=== PATIENT | male | born 1985 | race Caucasian/White ===

== ENCOUNTER 2021-04-11 07:55 | Day surgery (SDC) | payer OTHER, BC ==
[~2021-04-11 07:55] MED LIST: Lactated Ringers 1,000 ML IV SCH; Lidocaine 1% 4 ML ONE; Lidocaine 1%/Sod Bicarbonate in NS 8.4% 1 ML Syringe IDERM PRN; Propofol 200 MG/20 ML SDV ONE; Sodium Chloride 0.9% 10 ML Syringe FLUSH PRN; fentaNYL 100 MCG/2 ML SDV ONE
--- NOTE | 2021-04-11 09:03 | PCM.PREANE ---
Preanesthetic Assessment - Procedure Proposed Procedure: Screening colonoscopy, diagnostic EGD - Anesthesia/Transfusion/Family Hx Anesthesia History: Prior Anesthesia Without Reaction Family History of Anesthesia Reaction: No Transfusion History: No Prior Transfusion(s) - Review of Systems General: No Symptoms Pulmonary: No Symptoms Cardiovascular: No Symptoms Gastrointestinal: No Symptoms Neurological: No Symptoms - Physical Assessment NPO Status Date: 04/10/21 NPO Status Time: 21:00 Height: 1.78 m Weight: 95 kg ASA Class: 2 Mental Status: Alert & Oriented x3 Airway Class: Mallampati = 2 Dentition: Reports: Normal Dentition Thyro-Mental Finger Breadths: 3 Mouth Opening Finger Breadths: 3 ROM/Head Extension: Full Lungs: Clear to Auscultation, Normal Respiratory Effort Cardiovascular: Regular Rate, Regular Rhythm - Blood Blood Available: No Product(s) Available: None - Anesthesia Plan Pre-Op Medication Ordered: None - Acknowledgements Anesthesia Type Planned: MAC Pt an Appropriate Candidate for the Planned Anesthesia: Yes Alternatives and Risks of Anesthesia Discussed w Pt/Guardian: Yes Pt/Guardian Understands and Agrees with Anesthesia Plan: Yes PreAnesthesia Questionnaire - CURRENT (IN HOUSE) MEDS Current Meds: Current Medications Lactated Ringer's (Ringers, Lactated) 1,000 mls @ 125 mls/hr IV ASDIRECTED BEN Stop: 04/11/21 23:00 Lidocaine/Sodium Bicarbonate (Lidocaine 1%/Sod Bicarbonate In Ns 8.4% 1 Ml Syringe) 0.25 ml IDERM ONETIME PRN PRN Reason: Prior to IV Start Stop: 04/11/21 18:00 Sodium Chloride (Sodium Chloride 0.9% 10 Ml Syringe) 10 ml FLUSH ASDIRECTED PRN PRN Reason: Keep Vein Open Stop: 04/11/21 18:00 Discontinued Medications Fentanyl (Fentanyl 100 Mcg/2 Ml Sdv) Confirm Administered Dose 100 mcg .ROUTE .STK-MED ONE Stop: 04/11/21 07:05 Lidocaine HCl (Xylocaine-Mpf 1%) Confirm Administered Dose 4 mls @ as directed .ROUTE .STK-MED ONE Stop: 04/11/21 07:07 Propofol (Propofol 200 Mg/20 Ml Sdv) Confirm Administered Dose 200 mg .ROUTE .STK-MED ONE Stop: 04/11/21 07:05
[2021-04-11] MEDS ORDERED: Propofol 200 MG/20 ML SDV ONE ×2 (09:50→10:06)
[2021-04-11] MEDS ORDERED: Lactated Ringers 1,000 ML ONE (10:13)
--- NOTE | 2021-04-11 12:39 | PCM48HPAN ---
Post Anesthesia Note - EVALUATION WITHIN 48HRS OF ANESTHETIC Vital Signs in Normal Range: Yes Patient Participated in Evaluation: Yes Respiratory Function Stable: Yes Airway Patent: Yes Cardiovascular Function Stable: Yes Hydration Status Stable: Yes Pain Control Satisfactory: Yes Nausea and Vomiting Control Satisfactory: Yes Mental Status Recovered: Yes Vital Signs: Last Vital Signs Temp 36.4 C 04/11/21 08:10 Pulse 77 04/11/21 08:10 Resp 16 04/11/21 08:10 BP 120/89 04/11/21 08:10 Pulse Ox 95 04/11/21 08:10
--- NOTE | 2021-04-11 12:42 | PCM.PRNOTE ---
- Free Text/Narrative Note: Date: 04/11/2021 Procedure: screening colonoscopy, diagnostic esophagogastroduodenoscopy History: upper and lower endoscopy done in 2008 with findings of hiatal hernia and colon polyps. Reflux partially managed with nexium. Endoscopist: Cameron Hunter MD Findings: Moderate size sliding hiatal hernia. LA grade a esophagitis. No clear gross evidence of Carter's metaplasia. Colon prep was excellent, 2 small polyps were identified. Detailed Report: The patient was taken to the endoscopy suite and placed in left lateral decubitus position. Timeout was performed and monitored anesthesia care was initiated. A bite-block was placed and the endoscope was inserted into the [facility]. The scope was advanced to the distal portion of the duodenum with ease. The duodenal mucosa appeared normal, and a sample biopsy from the duodenal bulb was obtained with cold forceps. The scope was withdrawn into the stomach, and the pylorus and antrum appeared normal. A sample biopsy of antral mucosa was obtained with cold forceps. There was no evidence of peptic ulcer disease. On retroflexion, there was an apparent hiatal hernia measuring a few centimeters in span with a few centimeters of stomach herniated superior to the diaphragm. The scope was withdrawn into the herniated stomach. Biopsies of the gastroesophageal junction were obtained. There was no apparent Carter metaplasia on gross inspection, but there appeared to be LA grade a reflux esophagitis. Biopsies of the distal esophageal mucosa were obtained with cold forceps. Air was suctioned from the stomach prior to withdrawal of the scope. The remainder of the proximal esophagus appeared normal. Next, attention was turned to colonoscopy. The anus appeared normal and digital rectal exam was unremarkable. The colonoscope was inserted and advanced all the way to the cecum with ease. The appendiceal orifice was visualized and the terminal ileum was intubated. The scope was slowly withdrawn and mucosal surfaces were carefully inspected. Prep was very good. Near the hepatic flexure, a approximately 1 cm broad-based polypoid lesion was identified. This was removed in piecemeal fashion using jumbo forceps. The tissue base was fulgurated after removal. An additional small polyp was identified in the sigmoid colon and removed entirely with cold forceps. There was diverticular disease throughout the colon. On retroflexion in the rectum no significant hemorrhoidal disease was appreciated. Air was suctioned from the distal colon and rectum prior to withdrawal of the scope. The patient tolerated the procedure well.
== END 2021-04-11 10:57 | disposition home or self-care (01) ==
LOC: JD.SDS 07:55
PROVIDERS: ATTEND Surgery
DX: Z12.11 Encounter for screening for malignant neoplasm of colon (principal); D12.3 Benign neoplasm of transverse colon; D12.5 Benign neoplasm of sigmoid colon; G62.9 Polyneuropathy, unspecified; E66.3 Overweight; K44.9 Diaphragmatic hernia without obstruction or gangrene; K20.90 Esophagitis, unspecified without bleeding; K57.30 Diverticulosis of large intestine without perforation or abscess without bleeding; F17.210 Nicotine dependence, cigarettes, uncomplicated; K21.9 Gastro-esophageal reflux disease without esophagitis; Z79.899 Other long term (current) drug therapy; Z90.49 Acquired absence of other specified parts of digestive tract
CPT/HCPCS: 43239; 45380; 88305; J2704; J3010; J7120; 00813

== ENCOUNTER 2022-02-13 00:04 | Emergency (ER) | payer BC, OTHER ==
[2022-02-13] MEDS ORDERED: Sodium Chloride 0.9% 10 ML Syringe FLUSH PRN (01:11)
[2022-02-13] MEDS ORDERED: Ondansetron 4 MG/2 ML SDV IVPUSH ONE (01:32)
[2022-02-13] MEDS ORDERED: HYDROmorphone 1 MG/ML Syringe IVPUSH ONE (01:32)
[2022-02-13] MEDS ORDERED: Sodium Chloride 0.9% 10 ML Syringe FLUSH ONE (01:45)
[2022-02-13] MEDS ORDERED: Iopamidol 612 MG/ML 100 ML Bottle IVPUSH ONE (01:45)
[2022-02-13] MEDS ORDERED: Sodium Chloride 0.9% 1,000 ML IV SCH (01:45)
== END 2022-02-13 03:45 | disposition home or self-care (01) ==
LOC: JD.ED 00:04
DX: K57.32 Diverticulitis of large intestine without perforation or abscess without bleeding (principal); K21.9 Gastro-esophageal reflux disease without esophagitis; F17.210 Nicotine dependence, cigarettes, uncomplicated; Z79.899 Other long term (current) drug therapy
CPT/HCPCS: 36415; 74177; 80053; 83690; 83735; 85025; 86140; 96361; 96374; 96375; 99284; J1170; J2405; J3490; J7030; Q9967

== ENCOUNTER 2022-06-09 13:08 | Emergency (ER) | payer BC, OTHER | END 2022-06-09 14:36 | disposition home or self-care (01) | LOC: JD.ED 13:08 | DX: S46.212A Strain of muscle, fascia and tendon of other parts of biceps, left arm, initial encounter (principal); Z90.49 Acquired absence of other specified parts of digestive tract | CPT/HCPCS: 99283 ==